=== PATIENT | male | born 2000 | race Hispanic/Latino ===

== ENCOUNTER 2021-07-13 14:00 | Emergency (ER) | payer OTHER ==
[~2021-07-13] VITALS: Ht 175.3 cm; Wt 89.7 kg
[2021-07-13 14:04] VITALS: BP 116/59
[2021-07-13] MEDS ORDERED: IBUP200T46 PO (14:16)
== END 2021-07-13 15:20 | disposition home or self-care (01) ==
LOC: M ED 14:00
DX: S93.401A Sprain of unspecified ligament of right ankle, initial encounter (principal); X50.0XXA Overexertion from strenuous movement or load, initial encounter; Y92.9 Unspecified place or not applicable; Y93.B9 Activity, other involving muscle strengthening exercises; Y99.9 Unspecified external cause status